=== PATIENT | female | born 1960 | race Caucasian/White ===

== ENCOUNTER → 2016-11-27 | Outpatient (CLI) | payer BC ==
--- NOTE | 2016-11-28 16:40 | US ---
EXAMINATION TYPE: US axilla extremity RT DATE OF EXAM: 11/27/2016 COMPARISON: NONE CLINICAL HISTORY: Z03.89 Encounter for observation for other suspec. Patient stated is 5 years post bilateral mastectomy with reconstructive surgery and bilateral breast implants. She stated has had re cent fat tissue insertion to right lateral breast in August 2016 and since then has noted palpable inf erior and lateral to right axilla and just superior to recent right lateral incision and is noted bes t in upright position. Lobular appearance is noted at hyperechoic tissue at patient's area of concern. Folds are noted in l ateral right breast implant just medial to patient's c/o palpable in upright position. Couple of lymp h nodes are also noted with one noted deep inferior to axilla = 1.0 x 0.8 x 0.6cm and second node see n medial to palpable area in more superficial location = 0.6x 0.6 x 0.4cm. IMPRESSION: 1. Suspicious mass is not identified. 2. Occasional small lymph nodes.
== END | disposition home or self-care (01) ==
LOC: RADUSWWP 16:57
PROVIDERS: ATTEND Internal Medicine Hematology & Oncology
DX: Z03.89 Encounter for observation for other suspected diseases and conditions ruled out (principal); C50.919 Malignant neoplasm of unspecified site of unspecified female breast

== ENCOUNTER → 2018-10-24 | Outpatient (CLI) | payer BC ==
--- NOTE | 2018-10-24 23:38 | CONS ---
CONSULTATION DATE OF SERVICE: 10/24/2018 This patient is a 58-year-old lady who has been re-evaluated in [facility] for obstructive sleep apnea-hypopnea syndrome. HISTORY OF PRESENT ILLNESS/SLEEP-WAKE EVALUATION: The patient was diagnosed with mild obstructive sleep apnea in 2012. Since that time, she has been on treatment with CPAP for several years and was followed in Sleep Center. Last time I saw the patient was in 2014. For the last year, patient developed some problems with the usage of the machine. After starting to use the machine, she developed a closing of her nose, and then she was not able to use the machine and subsequently stopped using it. At present her sleep schedule is from 11 p.m. to 6 a.m. on working days and from the 11:00 pm to 7 a.m. on weekends. Sometimes she has problems with falling asleep. She has TV set in bedroom. She sleeps in different positions. She snores. Awakenings with a dry mouth and nocturia 2 times. She has episodes of feeling chest pressure and also she has awakenings from sleep with episodes of sleep paralysis. In the morning she wakes up tired, has difficulties paying attention, has problems with memory and concentration. [place] Sleepiness Scale today is increased at 13. PAST MEDICAL HISTORY: 1. Acid reflux. 2. Episodes of headaches. 3. Hypothyroidism. 4. Allergies. 5. Breast carcinoma. PAST SURGICAL HISTORY: Bilateral mastectomy for breast carcinoma. MEDICATIONS: 1. Thyroid supplement. 2. Angie. SOCIAL HISTORY: Positive for smoking in the past; quit 20 years ago. Alcohol consumption occasional. FAMILY HISTORY: Heart problems, hyperlipidemia, sinus problems, diabetes. REVIEW OF SYSTEMS: Multiple awakenings from sleep, sleepiness during the day. PHYSICAL EXAMINATION: GENERAL: A pleasant lady without distress. VITAL SIGNS: BP 156/94, HR 74, RR 18, height 5 feet 2-1/2 inches, weight 238.8 pounds, body mass index 42.8. The patient's weight increased by about 9 pounds since her last visit. Temperature 97.6, oxygen saturation at room air 97%. HEENT: PERRLA, EOMI. Evaluation of oropharynx showed tongue protrudes midline. Extremely low position of soft palate. Mallampati IV. Restriction of nasal breathing significant bilaterally. NECK: Supple. No JVD. Thyroid is not palpable. LUNGS: Clear to percussion and to auscultation. Good air exchange. No wheezing or rhonchi. HEART: S1, S2 regular. No murmurs, gallops or rubs. ABDOMEN: Obese. EXTREMITIES: No clubbing or cyanosis. CREDIT FRONT OFFICE DEVELOPER: Awake, alert, and oriented X3. Cranial nerves 2 to 7 intact. There is no fasciculation or atrophy. noted. No focal deficits observed. IMPRESSION: 1. Snoring, multiple awakenings from sleep, extremely low position of soft palate, wide neck at 16-1/2 inches in circumference, history of obstructive sleep apnea- hypopnea syndrome; obstructive sleep apnea-hypopnea syndrome. 2. Obesity with body mass index 42.8. 3. History of breast carcinoma, status post bilateral mastectomy. 4. Acid reflux. 5. Headaches. 6. Hypothyroidism. 7. Hypertension in the office. 8. Allergies. 9. Episodes of sleep paralysis. PLAN: 1. Prescription for new CPAP unit which has indication of apnea-hypopnea index. 2. Patient should use equipment every night for the whole night. 3. We will consider fitting patient with a full-face mask. I think DreamWear would be a good choice. 4. Precautions related to driving. No driving if feeling any sleepiness. 5. Losing weight. 6. Follow-up visit after patient receives her new machine to evaluate her clinical response on treatment, compliance with treatment, and to make any necessary adjustments related to mask fitting, pressure, humidification. Thank you very much for allowing me to participate in the management of your patient. Sincerely, John Paul Romero MD, PhD, FAASM Diplomat of [employer] [employer] Tool Smith of [facility] [place] MMODL / MORENAN: [id number] /
== END | disposition home or self-care (01) ==
LOC: SLEEP 16:43
PROVIDERS: ATTEND Internal Medicine
DX: G47.33 Obstructive sleep apnea (adult) (pediatric) (principal); E66.9 Obesity, unspecified; K21.9 Gastro-esophageal reflux disease without esophagitis; R51 Headache; E03.9 Hypothyroidism, unspecified; I10 Essential (primary) hypertension; T78.40XA Allergy, unspecified, initial encounter; G47.53 Recurrent isolated sleep paralysis; Z68.41 Body mass index [BMI] 40.0-44.9, adult; Z85.3 Personal history of malignant neoplasm of breast; Z87.891 Personal history of nicotine dependence; Z90.13 Acquired absence of bilateral breasts and nipples; Z79.899 Other long term (current) drug therapy
CPT/HCPCS: 99211

== ENCOUNTER → 2019-02-27 | Outpatient (CLI) | payer BC ==
--- NOTE | 2019-02-27 19:59 | PN ---
PROGRESS NOTE DATE OF SERVICE: 02/27/2019 58-year-old lady who has been followed in Sleep Center for treatment of obstructive sleep apnea-hypopnea syndrome. Recently the patient received a new CPAP unit, and today she is her first visit after starting to use new CPAP equipment. The patient is able to use CPAP equipment every night for the whole night without significant problems. No snoring with the machine. She sleeps well. No sleepiness during the day. [place] Sleepiness Scale is 9. I checked her CPAP unit, range of the pressure 5-8 with average pressure is 7.9. Usage is 30/30 nights and 25/30 nights for more than 4 hours with average usage is 6.2 hours which is good compliance. Leak is 16 L/minute which is normal range for the usage of the full-face mask. The patient is using dream where mask. Apnea-hypopnea index only 1.4, which is totally normal. MEDICATIONS: Angie, thyroid supplement. PHYSICAL EXAM: Patient in no distress. BP 138/79, HR is 72, RR 16, weight 242, temperature 98.2. Oropharynx extremely low soft palate, Mallampati 4. Neck Supple, no JVD. Thyroid is not palpable. LUNGS Clear to percussion and to auscultation. Good air exchange. No wheezing or rhonchi. HEART S1, S2 regular. No murmurs, gallops, or rubs. ABDOMEN: Obese. Soft and nontender. Bowel sounds are present. No organomegaly appreciated. EXTREMITIES No clubbing or cyanosis. TOOL FILER Awake, alert, and oriented X3. Cranial nerves 2 to 7 intact. There is no fasciculation or atrophy. noted. No focal deficits observed. IMPRESSION: 1. Obstructive sleep apnea-hypopnea syndrome, on full control with CPAP. Patient demonstrated great compliance with treatment benefitting from treatment. 2. Obesity. 3. History of breast carcinoma, status post bilateral mastectomy. 4. Acid reflux. 5. Headaches. 6. Hypothyroidism. 7. Allergies. 8. No recent episodes of sleep paralysis. PLAN: 1. Patient will continue to use CPAP equipment every night for the whole night with the same regimen of treatment. 2. Losing weight. 3. Sleep hygiene with regular time in bed for 7-1/2 to 8 hours. 4. No driving if feeling sleepiness. 5. I will maintain all necessary CPAP prescription. The patient is using DreamWear fullface medium-size mask and heated tube. Thank you very much for allowing me to participate in management of your patient. Sincerely, John Paul Romero MD, PhD, FAASM Diplomat of [employer] [employer] [employer] Lump Room Supervisor of [facility] [place] MMODL / MORENAN: [phone] /
== END | disposition home or self-care (01) ==
LOC: SLEEP 14:25
PROVIDERS: ATTEND Internal Medicine
DX: G47.33 Obstructive sleep apnea (adult) (pediatric) (principal); E66.9 Obesity, unspecified; K21.9 Gastro-esophageal reflux disease without esophagitis; R51 Headache; E03.9 Hypothyroidism, unspecified; T78.40XA Allergy, unspecified, initial encounter; Z85.3 Personal history of malignant neoplasm of breast; Z99.89 Dependence on other enabling machines and devices; Z90.13 Acquired absence of bilateral breasts and nipples; Z79.899 Other long term (current) drug therapy

== ENCOUNTER → 2020-06-24 | Outpatient (CLI) | payer BC ==
--- NOTE | 2020-06-24 21:44 | SFUN ---
SLEEP CENTER FOLLOW UP NOTE DATE OF SERVICE: 06/24/2020 60-year-old lady has been followed in Sleep Center for treatment of obstructive sleep apnea-hypopnea syndrome. The patient continues to use her CPAP equipment. She he does not snore with the machine. [place] Sleepiness Scale today is increased to 12. I checked her CPAP unit. Range of the pressure 5-8, usage is 29 out of 30 nights and 18 out of 30 nights for more than 4 hours with average usage 4.8 hours per night. Leak is 23 L/minute which is slightly high. At the same time, apnea-hypopnea index reading is totally normal at 2.7. MEDICATIONS: Angie 180 mg once a day. Levothyroxine 150 mcg once a day. PHYSICAL EXAM: Patient in no distress. BP 133/87, HR 82, RR 15, height 5 feet 2-1/2 inches, weight 227.4 pounds, BMI 40.8, temperature 97.9. Oxygen saturation at room air 94%. Oropharynx: Extremely low position of soft palate. Mallampati 4. NECK: Supple, no JVD. Thyroid is not palpable. LUNGS: Clear to percussion and to auscultation. Good air exchange. No wheezing or rhonchi. HEART: S1, S2 regular. No murmurs, gallops, or rubs. ABDOMEN: Obese. Soft and nontender. Bowel sounds are present. No organomegaly appreciated. EXTREMITIES: No clubbing or cyanosis. CROSSING GATEMAN: Awake, alert, and oriented X3. Cranial nerves 2 to 7 intact. There is no fasciculation or atrophy noted. No focal deficits observed. IMPRESSION: 1. Obstructive sleep apnea-hypopnea syndrome. The patient demonstrated good compliance with treatment benefitting from treatment. 2. Obesity. 3. History of breast carcinoma, status post bilateral mastectomy. 4. Acid reflux. 5. Hypothyroidism. 6. History of headaches. 7. Allergies. 8. History of sleep paralysis in the past. No recent episodes. PLAN: 1. Prescription for all necessary CPAP supplies, including mask, tubes and filters. 2. Patient will continue to use PAP equipment every night for the whole night. 3. Sleep hygiene with regular time in bed for at least 7-1/2 to 8 hours. 4. Precautions related to driving. No driving if feeling sleepiness. 5. I will maintain all necessary prescription for PAP supplies including mask, tube, filters. 6. Watching weight. 7. No driving if feeling sleepiness. 8. Follow-up visit in 6 months or earlier if patient has any problems. Thank you very much for allowing me to participate in the patient's cares. Sincerely, John Paul Romero MD, PhD, FAASM Diplomat of [employer] [employer] [employer] Manufacturing Production Manager of [facility] [place] MMODL / MORENAN: [phone] /
== END | disposition home or self-care (01) ==
LOC: SLEEP 15:01
PROVIDERS: ATTEND Internal Medicine
DX: G47.33 Obstructive sleep apnea (adult) (pediatric) (principal); E66.9 Obesity, unspecified; K21.9 Gastro-esophageal reflux disease without esophagitis; E03.9 Hypothyroidism, unspecified; R51.9 Headache, unspecified; T78.40XA Allergy, unspecified, initial encounter; Z99.89 Dependence on other enabling machines and devices; Z79.890 Hormone replacement therapy; Z85.3 Personal history of malignant neoplasm of breast; Z90.13 Acquired absence of bilateral breasts and nipples

== ENCOUNTER → 2021-03-03 | Outpatient (CLI) | payer BC ==
--- NOTE | 2021-03-03 19:01 | SFUN ---
SLEEP CENTER FOLLOW UP NOTE DATE OF SERVICE: 03/03/2021 This 60-year-old lady has been followed in Sleep Center for treatment of obstructive sleep apnea-hypopnea syndrome. Patient continues to use her CPAP equipment, but at present she sometimes skips some nights without usage of the machine. She is getting her supplies on a regular basis. [place] Sleepiness Scale today is 10, which is slightly increased. I checked her CPAP unit. Range of the pressure is 5-8 with average pressure 7.6 cm of water. Usage is 18/30 nights for the last month and 10/30 nights for more than 4 hours with average usage 12 L/minute. Apnea-hypopnea index 2.1, which is perfect. MEDICATIONS: 1. Angie 180 mg once a day. 2. Levothyroxine 150 mcg once a day. 3. Vitamins. PHYSICAL EXAMINATION: GENERAL: Pleasant patient in no distress. VITAL SIGNS: BP 143/95, HR 74, RR 15, height 5 feet 2-1/2 inches, weight 222 pounds, body mass index 39.9, temperature 98.2, oxygen saturation at room air 97%. HEENT: PERRLA, EOMI, evaluation of oropharynx showed tongue protrudes midline. Extremely low position of soft palate; Mallampati IV. NECK: Supple, no JVD. Thyroid is not palpable. LUNGS: Clear to percussion and to auscultation. Good air exchange. No wheezing or rhonchi. HEART: S1, S2 regular. No murmurs, gallops, or rubs. ABDOMEN: Obese. EXTREMITIES: No clubbing or cyanosis. CORE STRIPPER: Awake, alert, and oriented X3. Cranial nerves 2 to 7 intact. There is no fasciculation or atrophy. noted. No focal deficits observed. IMPRESSION: 1. Obstructive sleep apnea-hypopnea syndrome; normal respiration on the machine; slightly low compliance with CPAP treatment. Normal breathing on CPAP. 2. Obesity. Patient lost 5 pounds since previous visit. 3. History of breast carcinoma, status post bilateral mastectomy. 4. Acid reflux. 5. Hypothyroidism. 6. History of headaches. 7. Allergies. 8. History of sleep paralysis in the past. No recent episodes. PLAN: 1. Patient will continue to use PAP equipment every night for the whole night. 2. Sleep hygiene with regular time in bed for at least 7-1/2 to 8 hours. 3. Precautions related to driving. No driving if feeling sleepiness. 4. I will maintain all necessary prescription for PAP supplies including mask, tube, filters. 5. Watching weight. 6. Follow-up visit in 6 months or earlier if patient has any problems. Thank you very much for allowing me to participate in the management of your patient. Sincerely, John Paul Romero MD, PhD, FAASM Diplomat of [place] [employer] Sleep Medicine Board of [place] [employer] Internal Medicine Interchange Agent of [facility] [place] MMESTHELAL / MORENAN: [phone] /
== END | disposition home or self-care (01) ==
LOC: SLEEP 15:54
PROVIDERS: ATTEND Internal Medicine
DX: G47.33 Obstructive sleep apnea (adult) (pediatric) (principal); E66.9 Obesity, unspecified; R51.9 Headache, unspecified; K21.9 Gastro-esophageal reflux disease without esophagitis; E03.9 Hypothyroidism, unspecified; Z85.3 Personal history of malignant neoplasm of breast; Z90.13 Acquired absence of bilateral breasts and nipples; Z68.39 Body mass index [BMI] 39.0-39.9, adult

== ENCOUNTER 2023-03-15 10:28 | Emergency (ER) | payer BC ==
[2023-03-15 11:26] LABS: Basophils % (A) 0 %; Eosinophils # (A) 0.1 k/uL (0-0.7); Eosinophils % (A) 1 %; Lymphocytes # (A) 1.1 k/uL (1.0-4.8); Lymphocytes % (A) 14 %; MCH 31.3 pg (25.0-35.0); MCV 92.2 fL (80.0-100.0); Mean Platelet Volume 7.5; Monocytes # (A) 0.5 k/uL (0-1.0); Monocytes % (A) 6 %; Neutrophils # (A) 6.4 k/uL (1.3-7.7); Neutrophils % (A) 77 %; Platelet Count 309 k/uL (150-450); RDW 13.2 % (11.5-15.5); WBC 8.4 k/uL (3.8-10.6)
[2023-03-15 11:42] LABS: INR 0.9 (<1.2); Partial Thromboplastin Time 26.7 sec (22.0-30.0); Prothrombin Time 9.8 sec (9.0-12.0)
[2023-03-15 11:45] LABS: ALT 23 U/L (4-34); African American GFR (CKD) >90 (>60 ml/min/1.73 sqM); Albumin 4.4 g/dL (3.5-5.0); Anion Gap 11 mmol/L; Blood Urea Nitrogen 15 mg/dL (7-17); Calcium 10.5 mg/dL (8.4-10.2); Carbon Dioxide 22 mmol/L (22-30); Chloride 108 mmol/L (98-107); Glucose 105 mg/dL (74-99); Non-African American GFR(CKD) >90 (>60 ml/min/1.73 sqM); Sodium 141 mmol/L (137-145); Total Bilirubin 0.9 mg/dL (0.2-1.3)
[2023-03-15 11:46] LABS: AST 39 U/L (14-36); Alkaline Phosphatase 85 U/L (38-126); Magnesium 2.2 mg/dL (1.6-2.3); Potassium 4.5 mmol/L (3.5-5.1)
--- NOTE | 2023-03-15 12:18 | XR ---
EXAMINATION TYPE: XR chest 2V DATE OF EXAM: 03/15/2023 COMPARISON: None HISTORY: 63-year-old female with chest pain TECHNIQUE: PA and lateral views FINDINGS: Heart normal size. Aorta and pulmonary vasculature within normal limits. Mild interstitial prominence may be due to low lung volumes. No consolidation or pleural effusion. IMPRESSION: Some hypoventilatory changes. No definite acute process.
--- NOTE | 2023-03-15 13:09 | ED ---
Chest Pain HPI - General Chief Complaint: Chest Pain Stated Complaint: Chest pain Time Seen by Provider: 03/15/23 10:35 Source: patient Mode of arrival: ambulatory Limitations: no limitations - History of Present Illness Initial Comments: 63-year-old female presents emergency department with palpitations. States that she was at work when she noted that her heart was racing. She has had several episodes in the past couple weeks. Today's episode was persistent. She felt like her heart was irregular. She denies any history of this. She admits to some associated tightness. No history of coronary disease. She denies shortness of breath. No fevers, chills. Has had an upper respiratory infection with significant coughing. Feels as if today's episode started after a coughing fit. No other alleviating, precipitating or modifying factors - Related Data Home Medications Medication Instructions Recorded Confirmed Fexofenadine HCl [Angie Allergy] 180 mg PO DAILY PRN 10/05/15 03/15/23 Ibuprofen [Motrin] 200 - 400 mg PO Q4-6H PRN 10/05/15 03/15/23 Levothyroxine Sodium [Synthroid] 150 mcg PO DAILY 10/05/15 03/15/23 Fluocinonide 0.05% Solution 1 applic TOPICAL DIRECTED 03/15/23 03/15/23 Glutathione Oral Powder 1 scoop PO DAILY 03/15/23 03/15/23 Ketoconazole 2% Shampoo [Nizoral] 1 applic TOPICAL DIRECTED 03/15/23 03/15/23 Magnesium Oral Powder 1 scoop PO DAILY 03/15/23 03/15/23 Methylated B Complex Oral Powder 1 scoop PO DAILY 03/15/23 03/15/23 Powdered Greens 1 scoop PO DAILY 03/15/23 03/15/23 Vitamin C Oral Powder 1 scoop PO DAILY 03/15/23 03/15/23 Vitamin D3 Oral Powder 1 scoop PO DAILY 03/15/23 03/15/23 Zinc Oral Powder 1 scoop PO DAILY 03/15/23 03/15/23 Previous Rx's Medication Instructions Recorded Apixaban [Eliquis] 5 mg PO BID #60 tablet 03/15/23 Metoprolol Tartrate [Lopressor] 25 mg PO BID #60 tablet 03/15/23 Allergies Allergy/AdvReac Type Severity Reaction Status Date / Time Penicillins Allergy Rash/Hives Verified 03/15/23 14:32 gluten AdvReac Nausea & Verified 03/15/23 14:33 Vomiting & Diarrhea tamoxifen AdvReac PSYCHOLOGICAL Verified 03/15/23 14:32 AFFECT/ANGER tetracycline AdvReac "Foggy Verified 03/15/23 14:32 Head" Review of Systems ROS Statement: Those systems with pertinent positive or pertinent negative responses have been documented in the HPI. ROS Other: All systems not noted in ROS Statement are negative. Past Medical History Past Medical History: Cancer, GERD/Reflux, Sleep Apnea/CPAP/BIPAP, Thyroid Disorder Additional Past Medical History / Comment(s): HAS BEEN HAVING VISION PROBLEMS/ LIGHT FLASHES, WAS TOLD IT COULD BE A SIGN OF HEART PROBLEM. BREAST CANCER. USES CPAP. HEADACHES. HOT FLASHES. History of Any Multi-Drug Resistant Organisms: None Reported Past Surgical History: Breast Surgery Additional Past Surgical History / Comment(s): BILATERAL MASTECTOMIES WITH IMPLANT/RECONSTRUCTION. VARICOSE VEIN/RIGHT LEG. Past Anesthesia/Blood Transfusion Reactions: Motion Sickness Smoking Status: Never smoker Past Alcohol Use History: Rare Past Drug Use History: None Reported, Marijuana - Past Family History Mother Family Medical History: Coronary Artery Disease (CAD) Father Family Medical History: Diabetes Mellitus General Exam Limitations: no limitations General appearance: alert, in no apparent distress Head exam: Present: atraumatic, normocephalic, normal inspection Eye exam: Present: normal appearance, PERRL, EOMI. Absent: scleral icterus, conjunctival injection, periorbital swelling ENT exam: Present: normal exam, mucous membranes moist Neck exam: Present: normal inspection. Absent: tenderness, meningismus, lymphadenopathy Respiratory exam: Present: normal lung sounds bilaterally. Absent: respiratory distress, wheezes, rales, rhonchi, stridor Cardiovascular Exam: Present: tachycardia, irregular rhythm, normal heart sounds. Absent: systolic murmur, diastolic murmur, rubs, gallop, clicks GI/Abdominal exam: Present: soft, normal bowel sounds. Absent: distended, tenderness, guarding, rebound, rigid Extremities exam: Present: normal inspection, full ROM, normal capillary refill. Absent: tenderness, pedal edema, joint swelling, calf tenderness Back exam: Present: normal inspection Neurological exam: Present: alert, oriented X3, CN II-XII intact Psychiatric exam: Present: normal affect, normal mood Skin exam: Present: warm, dry, intact, normal color. Absent: rash Course Vital Signs 03/15/23 03/15/23 03/15/23 10:31 12:00 12:01 Temperature 98.3 F Pulse Rate 115 H 86 Pulse Rate [ 84 Egg Candler ] Respiratory 18 17 Rate Blood Pressure 139/86 128/76 O2 Sat by Pulse 98 96 Oximetry 03/15/23 03/15/23 14:20 15:36 Temperature 98.0 F Pulse Rate 79 70 Pulse Rate [ Egg Candler ] Respiratory 17 18 Rate Blood Pressure 129/75 132/79 O2 Sat by Pulse 98 100 Oximetry Chest Pain MDM - MDM Was pt. sent in by a medical professional or institution (, PA, BAND SAWMILL OPERATOR, urgent care, hospital, or shelter...) When possible be specific @ -No Did you speak to anyone other than the patient for history (EMS, parent, family, police, friend...)? What history was obtained from this source @ -No Did you review nursing and triage notes (agree or disagree)? Why? @ -I reviewed and agree with nursing and triage notes Were old charts reviewed (outside hosp., previous admission, EMS record, old EKG, old radiological studies, urgent care reports/EKG's, shelter records)? Report findings @ -No old charts were reviewed Differential Diagnosis (chest pain, altered mental status, abdominal pain women, abdominal pain men, vaginal bleeding, weakness, fever, dyspnea, syncope, headache, dizziness, GI bleed, back pain, seizure, CVA, palpatations, mental health, musculoskeletal)? @ -Differential Palpitations Ventricular arrhythmias, atrial arrhythmias, myocardial infarction, anemia, thyrotoxicosis, electrolyte imbalance, hypokalemia, pulmonary embolism, pulmonary disease, drugs, alcohol, anxiety, stress.... This is not meant to be an all-inclusive list. EKG interpreted by me (3pts min.). @ - First EKG done at 1042 demonstrates A. fib with a rate of 141. QRS 87. QTC 376. Right bundle branch block. No acute ST segment elevation Repeat EKG done at 1255 demonstrates sinus rhythm with a rate of 76. WI interval 179. QRS 98. QTC of 397. No acute ST segment elevation or depressions X-rays interpreted by me (1pt min.). @ -Yes and demonstrates no acute process CT interpreted by me (1pt min.). @ -None done U/S interpreted by me (1pt. min.). @ -None done What testing was considered but not performed or refused? (CT, X-rays, U/S, labs)? Why? @ -None What meds were considered but not given or refused? Why? @ -Cardizem was considered however patient converted before medications were administered Did you discuss the management of the patient with other professionals (professionals i.e. DrJennifer, PA, BAND SAWMILL OPERATOR, lab, RT, psych nurse, mental health social worker, digital computer operator, teacher, state wildlife officer, showcase trimmer)? Give summary @ -Spoke with Dr. Herbert Was smoking cessation discussed for >3mins.? @ -No Was critical care preformed (if so, how long)? @ -No Were there social determinants of health that impacted care today? How? (Homel essness, low income, unemployed, alcoholism, drug addiction, transportation, low edu. Level, literacy, decrease access to med. care, long term, rehab)? @ -No Was there de-escalation of care discussed even if they declined (Discuss DNR or withdrawal of care, Hospice)? DNR status @ -No What co-morbidities impacted this encounter? (DM, HTN, Smoking, COPD, CAD, Cancer, CVA, ARF, Chemo, Hep., AIDS, mental health diagnosis, sleep apnea, morbid obesity)? @ -None Was patient admitted / discharged? Hospital course, mention meds given and route, prescriptions, significant lab abnormalities, going to OR and other pertinent info. @ -Upon arrival patient was placed into room 9. Thorough history and physical exam was performed. She was placed on continuous pulse ox and cardiac monitoring. 12-lead EKG was obtained which demonstrates the patient is in A. fib with a rapid rate. Laboratory studies are conducted. I was going to give the patient Cardizem however she did convert on her own. I did discuss the case with Dr. Herbert. Her chads vasc score is 1 however he did recommend anticoagulation and metoprolol. Patient was given doses of these in the emergency department. She will follow up with cardiology for further management return for any new or worsening symptoms. Patient agreeable to plan she is discharged in stable condition Undiagnosed new problem with uncertain prognosis? @ -Yes Drug Therapy requiring intensive monitoring for toxicity (Heparin, Nitro, Insulin, Cardizem)? @ -No Were any procedures done? @ -No Diagnosis/symptom? @ -Acute palpitations, new-onset A. fib Acute, or Chronic, or Acute on Chronic? @ Acute Uncomplicated (without systemic symptoms) or Complicated (systemic symptoms)? @ -Complicated Side effects of treatment? @ -Bleeding Exacerbation, Progression, or Severe Exacerbation? @ -No Poses a threat to life or bodily function? How? (Chest pain, [place], [place], pneumonia, PE, COPD, DKA, ARF, appy, cholecystitis, CVA, Diverticulitis, Homicidal, Suicidal, threat to staff... and all critical care pts) @ -No Disposition Clinical Impression: Paroxysmal A-fib Disposition: HOME SELF-CARE Condition: Stable Instructions (If sedation given, give patient instructions): A-fib (Atrial Fibrillation) (ED) Additional Instructions: Please start taking the newly prescribed medications tomorrow morning. Follow- up at your scheduled appointment with Dr. Schafer and return for any new or worsening symptoms Prescriptions: Apixaban [Eliquis] 5 mg PO BID #60 tablet Metoprolol Tartrate [Lopressor] 25 mg PO BID #60 tablet Is patient prescribed a controlled substance at d/c from ED?: No Referrals: Alice Schafer MD [STAFF PHYSICIAN] - 03/28/23 3:45 pm (No morning appointments available. You may call office for availablity for a morning appointment next week in case of cancellations. ) Allan Espino MD [Primary Care Provider] - 1-2 days Time of Disposition: 15:13
[2023-03-15 13:58] LABS: T4, Free (Free Thyroxine) 2.17 ng/dL (0.78-2.19)
[2023-03-15] MEDS ORDERED: METOPROLOL TARTRATE 25 MG TAB PO STA (15:10)
[2023-03-15] MEDS ORDERED: APIXABAN 5 MG TAB PO STA (15:10)
[2023-03-15 15:42] VITALS: BP 132/79; PULSE 70; RESP 18; TEMP 98
== END 2023-03-15 15:38 | disposition home or self-care (01) ==
LOC: EC 10:28
DX: I48.0 Paroxysmal atrial fibrillation (principal); I45.10 Unspecified right bundle-branch block; E07.9 Disorder of thyroid, unspecified; F12.90 Cannabis use, unspecified, uncomplicated; Z79.890 Hormone replacement therapy; Z88.0 Allergy status to penicillin; Z88.1 Allergy status to other antibiotic agents; Z88.6 Allergy status to analgesic agent; Z91.018 Allergy to other foods
CPT/HCPCS: 36415; 71046; 80053; 83735; 84439; 84443; 84484; 85025; 85379; 85610; 85730; 93005; 99285